=== PATIENT | female | born 1970 | race Caucasian/White ===

== ENCOUNTER → 2019-10-29 | Day surgery (SDC) | payer OTHER ==
[~2019-10-29] MED LIST: AMLO10TA4 PO; IV RINGERS,LACTATED 1000ML 1,000 ML IV SCH; LIDOCAINE 2% PF 5 ML VIAL. ONE; METO25TA4 PO; PROPOFOL 40 ML IV ONE; THYR30TA PO; ePHEDrine PF IN SALINE 50 MG/10 ML SYRINGE. IV ONE
--- NOTE | 2019-10-29 09:27 | PREOP HP ---
DATE OF SERVICE: 10/29/2019 REQUESTING PHYSICIAN: Judy Paz MD PRIMARY CARE PHYSICIAN: Judy Paz MD REASON FOR PROCEDURE: Colorectal cancer screening. HISTORY OF PRESENT ILLNESS: This is a 49-year-old female who presents for colorectal cancer screening. ALLERGIES: No known drug allergies. PAST MEDICAL HISTORY: Hypertension, hypothyroidism. FAMILY MEDICAL HISTORY: Colon polyps in her child. SOCIAL HISTORY: She denies tobacco and admits to alcohol use. MEDICATIONS: MAR reviewed. REVIEW OF SYSTEMS: A 13-point review of systems was done. It is positive as per HPI and otherwise negative. PHYSICAL EXAMINATION: VITAL SIGNS: She is afebrile and her vital signs are stable. GENERAL: She is a well-developed, well-nourished female, in no apparent distress. HEENT: Oropharynx is clear. CARDIOVASCULAR: S1, S2. LUNGS: Clear. ABDOMEN: Normoactive bowel sounds, soft, nontender, nondistended. EXTREMITIES: No edema. NEUROLOGIC: Awake, alert and oriented x 3. ASSESSMENT AND PLAN: Colorectal cancer screening. The risks and benefits of the procedure including bleeding, perforation, non-diagnosis and sedation were explained and she has agreed to proceed. CHEMO JOHNS MD DR: LISA/cosmo JOB#: [id number] / [id number]
[2019-10-29 09:41] VITALS: BP 104/67
--- NOTE | 2019-10-30 16:06 | PATHOLOGY ---
[facility] Accession Number: [id number] . 01 Material submitted: . PART A: ileo-cecal valve - ILEOCECAL VALVE NODULE BIOPSY PART B: colon - SIGMOID POLYP. Modifiers: sigmoid . 01 Clinical history: . CRC screening . 02 Diagnosis: A. Small intestine mucosa and attached muscularis mucosa/submucosa, ileocecal valve nodule biopsy: - Consistent with adiposity of ileocecal valve. . B. Colon biopsy, sigmoid polyp: - Consistent with prominent mucosal fold. (JPM:[facility] 10/30/2019) [facility] 10/30/2019 1531 Local . 02 Comment: Sections of the ileocecal valve nodule biopsy reveal a segment of small intestine mucosa with attached muscularis mucosa and submucosa. There are mature adipocytes present within the submucosal tissue. The findings are consistent with adiposity of ileocecal valve. There are no adenomatous changes or evidence of malignancy. . Sections of the sigmoid colon biopsy reveal segments of colonic mucosa consistent with prominent mucosal fold. There are no adenomatous changes or evidence of malignancy. (JPM:[facility] 10/30/2019) . 02 Electronically signed: . Julio Mccartney MD, Pathologist NPI- [id number] . 01 Gross description: . A. Received in formalin labeled "Ed[place]olin, Shannon, ileocecal valve nodule BX," is a single segment of reyna soft tissue measuring 0.8 cm in maximum dimension. The specimen is entirely submitted in cassette A1. . B. Received in formalin labeled "[place], Shannon, sigmoid polyp," are 2 segments of reyna soft tissue measuring 0.9 x 0.3 x 0.2 cm in aggregate dimensions and ranging from 0.4 to 0.5 cm in maximum dimension. The specimen is submitted entirely in cassette B1. (TSD; 10/29/2019) TOB/TOB 10/29/2019 1949 Local . 02 Pathologist provided ICD-10: Z12.11 . 02 CPT . 937034, 060085 Specimen Comment: A courtesy copy of this report has been sent to [phone] Specimen Comment: [id number] Specimen Comment: Report sent to / Performed at: 01 [facility] [address], [place] [id number] MD Julien Prince MD Phone: [phone] Performed at: 02 [facility] [address] [place], [place] [id number] MD Julio Mccartney MD Phone: [phone]
== END ==
LOC: ENDOS 07:16
PROVIDERS: ATTEND Internal Medicine Gastroenterology
DX: Z12.11 Encounter for screening for malignant neoplasm of colon (principal); K64.0 First degree hemorrhoids; K63.89 Other specified diseases of intestine; I10 Essential (primary) hypertension; E03.9 Hypothyroidism, unspecified; Z72.89 Other problems related to lifestyle
CPT/HCPCS: 45380; 81025; 88305; J0171; J2001; J2704